=== PATIENT | male | born 1985 | race Asian ===

== ENCOUNTER 2017-03-26 05:56 | Day surgery (SDC) | payer BC ==
[2017-03-26] MEDS ORDERED: ACETAMINOPHEN 1,000 MG/100 ML BTL IV ONE (06:00)
--- NOTE | 2017-03-26 13:00 | Operative Note ---
DATE OF SURGERY: 03/26/2017 Surgeon: Carlos Godinez DO PREOPERATIVE DIAGNOSIS: Soft tissue mass of the left thumb. POSTOPERATIVE DIAGNOSIS: A 1.5 cm soft tissue mass of left thumb. OPERATION: Excision of soft tissue mass left thumb, 1.5 cm, using 3.5 loop magnification. DESCRIPTION OF PROCEDURE: This 31-year-old male was taken to the operating room and placed in the supine position on the operating room table. A general anesthetic was administered and the left upper extremity was elevated. It was prepped with Hibiclens and draped in the usual sterile fashion. Exsanguinated and the tourniquet inflated to 250 mmHg. The left thumb demonstrated soft tissue mas which had a small opening of about 2 mm in the center of the pad of the thumb. We used a chevron-type incision to avoid going through this area and the flap was elevated and its base was along the radial aspect of the thumb at the midline. We immediately identified the soft tissue mass and it was somewhat adherent to the skin. This was sharply and bluntly divided to remove all of the tumor from the dermis, which was actually not a difficult task. The remainder of the mass was completely encapsulated. Difficult to tell exactly where the attachment site was but the remainder of the mass was completely excised in total as a solid mass and sent to pathology for dialysis. This was a multilobulated grayish-yellow mass of about 1.5 cm in greatest dimension, roughly round in shape. The wound was then copiously irrigated with lactated Ringer's solution. We did put a single stitch in the previous opening which was about 2 mm as mentioned above. A 6-0 nylon suture was used for this purpose. The remainder of the incision was closed with the same suture in interrupted fashion. Hemostasis was obtained with the electrocautery. A tube gauze was used as a dressing and the patient was taken to the recovery room in satisfactory condition. GROSS PATHOLOGY: This patient demonstrated a soft tissue mass which was in the center of the pad of the thumb with a small central opening. This mass was roughly round in shape about 1.5 cm and sort of a grayish-yellow color, multilobulated but well contained. [facility]
[2017-03-26] MEDS ORDERED: ACETAMINOPHEN W/ CODEINE 300MG/30MG TABLET PO ONE (13:41)
[2017-03-26] MEDS ORDERED: PROPOFOL 10 MG/ML VIAL IV ONE (15:31)
[2017-03-26] MEDS ORDERED: KETOROLAC 30 MG/ML VIAL IVP ONE (15:31)
[2017-03-26] MEDS ORDERED: SEVOFLURANE 250 ML INH ONE (15:31)
[2017-03-26] MEDS ORDERED: LIDOCAINE 2% MDV (20MG/ML) 20ML VIAL IV ONE (15:31)
[2017-03-26] MEDS ORDERED: FENTANYL PF 100MCG/2ML VIAL IV ONE (15:31)
== END 2017-03-26 08:25 | disposition home or self-care (01) ==
LOC: SUR 05:56
PROVIDERS: ATTEND Orthopaedic Surgery
DX: D48.1 Neoplasm of uncertain behavior of connective and other soft tissue (principal)
CPT/HCPCS: 26160; 01810; J1885; J3010

== ENCOUNTER 2018-04-25 07:29 | Day surgery (SDC) | payer BC ==
[~2018-04-25 07:29] MED LIST: ACETAMINOPHEN 1,000 MG/100 ML BTL IV ONE; FAMOTIDINE 20MG TABLET PO ONE; MECLIZINE 25 MG TABLET PO ONE; METOCLOPRAMIDE 10 MG TABLET PO ONE
[2018-04-25] MEDS ORDERED: ROCURONIUM BROMIDE 50MG/5ML VIAL IV ONE (07:30)
[2018-04-25] MEDS ORDERED: MIDAZOLAM HCL 2MG/2ML VIAL IV ONE (07:30)
[2018-04-25] MEDS ORDERED: BUPIVACAINE 0.25% W/EPI MPF 30ML VIAL IVP ONE (07:30)
[2018-04-25] MEDS ORDERED: SUCCINYLCHOLINE 20 MG/ML 10ML IVP ONE (07:30)
[2018-04-25] MEDS ORDERED: FENTANYL PF 100MCG/2ML VIAL IV ONE (07:30)
[2018-04-25] MEDS ORDERED: ONDANSETRON HCL IV 4 MG/2 ML VIAL IVP ONE (07:30)
[2018-04-25] MEDS ORDERED: GLYCOPYRROLATE 0.2 MG/ML ML IV ONE (07:30)
[2018-04-25] MEDS ORDERED: NEOSTIGMINE 1 MG/1 ML,10ML VIAL IV ONE (07:30)
[2018-04-25] MEDS ORDERED: KETOROLAC 30 MG/ML VIAL IVP ONE (07:30)
[2018-04-25] MEDS ORDERED: SEVOFLURANE 250 ML INH ONE (07:30)
[2018-04-25] MEDS ORDERED: PROPOFOL 10 MG/ML VIAL IV ONE (07:30)
[2018-04-25] MEDS ORDERED: LIDOCAINE 2% MDV (20MG/ML) 20ML VIAL IV ONE (07:30)
--- NOTE | 2018-04-28 12:31 | Operative Note ---
DATE OF SURGERY: 04/25/2018 Surgeon: Michael Maravilla DO PREOPERATIVE DIAGNOSIS: Symptomatic biliary dyskinesia. POSTOPERATIVE DIAGNOSIS: Symptomatic biliary dyskinesia. OPERATION: Laparoscopic cholecystectomy. Indication: The patient is a 32-year-old male who is having ongoing right subcostal postprandial pain. We did discuss cholecystectomy versus medical management. He desired surgical intervention. Risks include but are not limited to bleeding, infection, ductal injury, possible conversion to open, postoperative bile leak. He understood this fully. PROCEDURE: Thereafter, consent was signed and questions answered. He was taken to the operating room and placed in a supine position. General anesthesia was administered per the department of anesthesia. A timeout was performed. His identity was confirmed. He did receive preoperative Ofirmev. At this time, due to his tattoo around his navel, I did go in a supraumbilical region. This area was anesthetized with a total of 5 mL of 0.25% Sensorcaine with epinephrine. A 2 cm incision was made. This was carried down to the anterior rectus fascia. This was incised. Tabitha clamps were placed on the fascial edges and brought up into the wound. Stay sutures of 0 Vicryl were placed. Posterior rectus sheath was identified and incised. The peritoneal cavity was entered bluntly. At this time, a [address] port was placed. Adequate pneumoperitoneum was established. Under direct visualization, additional 5 mm epigastric and two 5 mm right subcostal ports were placed. The gallbladder was identified. It was retracted in a cephalad and lateral direction opening up the angle of Calot. The hepatocystic triangle was thoroughly dissected out. The distal half of the gallbladder was released from the cystic plate elongating a rectal ductal window. . The cystic duct and cystic artery were clearly identified. Due to the paucity of visceral fat, I could clearly see the common hepatic and common bile ducts medial. We had an excellent critical view of safety. Cystic artery was taken down with the Meliton harmonic. The cystic duct was triply clipped and cut in a standard fashion. Gallbladder was taken off the liver bed with the Meliton harmonic. This was extracted through the umbilical port. Right upper quadrant was rechecked and found to be hemostatic. No bleeding. No bile leak. No bowel injury noted. The patient was leveled out. The pneumoperitoneum was released. All ports were removed. The fascia was closed with 0 Vicryl in a [id number] fashion. The skin at all ports was closed with 4-0 Vicryl. The patient was taken to the recovery room in satisfactory condition. CC: MD VIDHYA Saba
== END 2018-04-25 10:50 | disposition home or self-care (01) ==
LOC: SUR 07:29
PROVIDERS: ATTEND Surgery
DX: K82.8 Other specified diseases of gallbladder (principal)
CPT/HCPCS: 47562; 00790; J1885; J2405; J3010; J0330; J2710